=== PATIENT | male | born 1990 | race Caucasian/White ===

== ENCOUNTER 2016-06-10 20:31 | Emergency (ER) | payer OTHER ==
--- NOTE | 2016-06-10 20:55 | ER Document Report ---
ED Medical Screen (RME) - General Stated Complaint: TESTICULAR/ABDOMINAL PAIN Notes: yesterday onset right testicular pain that radiates into his groin, states that it is higher then the left. tender to touch denies urinary symptoms, penile discharge I have greeted and performed a rapid initial assessment of this patient. A comprehensive ED assessment and evaluation of the patient, analysis of test results and completion of the medical decision making process will be conducted by additional ED providers.
[2016-06-10 23:56] LABS: APPEARANCE,URINE CLEAR; BILIRUBIN,URINE NEGATIVE (NEGATIVE); GLUCOSE, URINE NEGATIVE (NEGATIVE); KETONES,URINE NEGATIVE (NEGATIVE); LEUKOCYTE ESTERASE,URINE NEGATIVE (NEGATIVE); NITRITE,URINE NEGATIVE (NEGATIVE); PROTEIN,URINE NEGATIVE (NEGATIVE); URINE SPECIFIC GRAVITY 1.016; UROBILINOGEN,URINE NEGATIVE mg/dL (<2.0)
--- NOTE | 2016-06-11 00:05 | ER Document Report ---
ED General - General Chief Complaint: Testicular Pain Stated Complaint: TESTICULAR/ABDOMINAL PAIN Notes: Patient is a 26-year-old male without past medical history who presents with several weeks of intermittent right testicular pain that became acutely worse tonight. Does describe some intermittent, sharp, stabbing pain in the right testicle. Nothing triggers these episodes of pain. They last for approximately 30 seconds and then do spontaneously resolve. Denies history of similar symptoms in the past. He has not seen his primary care doctor regarding today's concerns. Denies any discharge, dysuria, or hematuria. No flank or abdominal pain. He has not had any vomiting or fever. TRAVEL OUTSIDE OF THE [place] IN LAST 30 DAYS: No - Related Data Allergies/Adverse Reactions: Penicillins Allergy (Verified 06/10/16 20:52) Past Medical History - General Information source: Patient - Social History Smoking Status: Never Smoker Frequency of alcohol use: None Drug Abuse: None Lives with: Spouse/Significant other Family History: Reviewed & Not Pertinent Patient has suicidal ideation: No Patient has homicidal ideation: No Renal/ Medical History: Denies: Hx Peritoneal Dialysis Review of Systems - Review of Systems Notes: Constitutional: Negative for fever. HENT: Negative for sore throat. Eyes: Negative for visual changes. Cardiovascular: Negative for chest pain. Respiratory: Negative for shortness of breath. Gastrointestinal: Negative for abdominal pain, vomiting or diarrhea. Genitourinary: Negative for dysuria. Positive for right testicle pain Musculoskeletal: Negative for back pain. Skin: Negative for rash. Neurological: Negative for headaches, weakness or numbness. 10 point ROS negative except as marked above and in HPI. Physical Exam - Vital signs Vitals: Temp Pulse Resp BP Pulse Ox 97.7 F 80 16 128/77 H 98 06/10/16 20:52 06/10/16 20:52 06/10/16 20:52 06/10/16 20:52 06/10/16 20:52 Interpretation: Normal Notes: PHYSICAL EXAMINATION: GENERAL: Well-appearing, well-nourished and in no acute distress. HEAD: Atraumatic, normocephalic. EYES: Pupils equal round and reactive to light, extraocular movements intact, sclera anicteric, conjunctiva are normal. ENT: nares patent, oropharynx clear without exudates. Moist mucous membranes. NECK: Normal range of motion, supple without lymphadenopathy LUNGS: Breath sounds clear to auscultation bilaterally and equal. No wheezes rales or rhonchi. HEART: Regular rate and rhythm without murmurs ABDOMEN: Soft, nontender, normoactive bowel sounds. No guarding, no rebound. No masses appreciated. : Right testicle slightly raised. Pain on palpation of the epididymis and spermatic cord. Absent cremasteric reflex on the right. Present on the left. EXTREMITIES: Normal range of motion, no pitting or edema. No cyanosis. NEUROLOGICAL: No focal neurological deficits. Moves all extremities spontaneously and on command. PSYCH: Normal mood, normal affect. SKIN: Warm, Dry, normal turgor, no rashes or lesions noted. Course - Re-evaluation Re-evalutation: 06/11/16 00:03 Patient presents with intermittent right testicular pain. The right testicle is somewhat raised relative to the left. Cremasteric reflex not present on the right. Patient is not have any significant pain on the palpation of the testicle. A ultrasound does demonstrate a right-sided varicocele, no evidence of testicular torsion and his clinical history is not consistent with a diagnosis of torsion. Urinalysis is unremarkable. Will discharge with recommendations to follow-up with urology as well as return precautions. At this time will discharge with return precautions and follow-up recommendations. Verbal discharge instructions given a the bedside and opportunity for questions given. Medication warnings reviewed. Patient is in agreement with this plan and has verbalized understanding of return precautions and the need for primary care follow-up in the next 24-72 hours. - Vital Signs Vital signs: Temp Pulse Resp BP Pulse Ox 97.3 F 52 L 16 104/67 99 06/11/16 00:25 06/11/16 00:25 06/11/16 00:25 06/11/16 00:25 06/11/16 00:25 - Diagnostic Test Radiology reviewed: Reports reviewed Discharge - Discharge Clinical Impression: Right varicocele Condition: Good Disposition: HOME, SELF-CARE Additional Instructions: The pain in the right testicle is due to something called a varicocele which is a dilation of the veins that supply blood to the testicle. Your pain can be improved by raising the testicle or by wearing more supportive underwear. If this does not improve your pain, you will need to follow-up with urology as surgical management is sometimes required. Please return if you have worsening pain, persistent vomiting, fever greater than 101F, or any other symptoms that are worrisome to you. Referrals: CAROLE GRANADOS MD [ACTIVE STAFF] - Follow up as needed
[2016-06-11 00:50] LABS: CHLAM PCR NOT DETECTED (NOT DETECT)
[2016-06-11 01:34] VITALS: BP 104/67
== END 2016-06-11 00:25 | disposition home or self-care (01) ==
LOC: ER 20:31
DX: I86.1 Scrotal varices (principal); N50.811 Right testicular pain; Z88.0 Allergy status to penicillin
CPT/HCPCS: 76870; 81001; 87086; 87491; 87591; 93976; 99284

== ENCOUNTER 2016-08-05 05:15 | Day surgery (SDC) | payer OTHER ==
[~2016-08-05 05:15] MED LIST: LIDOCAINE 0.5% INJ-PF (5 MG/ML) 50 ML SDV INJ PRN; MORPHINE SULFATE 10 MG/ML INJ IV PRN; ONDANSETRON HCL INJ/PF 4 MG/2 ML SDV IV PRN; RINGERS SOLUTION,LACTATED 1,000 ML IV PRN
[2016-08-05] MEDS ORDERED: HYDROMORPHONE HCL INJ/PF 2 MG/ML AMPULE ONE (07:03)
[2016-08-05] MEDS ORDERED: MIDAZOLAM 2 MG/2 ML INJ ONE (07:04)
[2016-08-05] MEDS ORDERED: FENTANYL CITRATE INJ/PF 100 MCG/2 ML AMPUL ONE (07:04)
[2016-08-05] MEDS ORDERED: PROPOFOL INJ 200 MG/20 ML VIAL IV ONE ×2 (07:04)
[2016-08-05] MEDS ORDERED: CLINDAMYCIN PHOSPHATE INJ 300 MG/2 ML SDV ONE (07:51)
[2016-08-05] MEDS: BUPIVACAINE HCL 0.25 % INJ/PF (2.5 MG/1 ML) 30 ML VIAL ONE ×2 (08:05→08:47)
[2016-08-05] MEDS ORDERED: FENTANYL CITRATE INJ/PF 100 MCG/2 ML AMPUL IV PRN ×3 (08:23)
[2016-08-05] MEDS ORDERED: MEPERIDINE HCL/PF INJ 25 MG/1 ML DISP.SYRIN IV PRN (08:23)
[2016-08-05] MEDS ORDERED: PROMETHAZINE HCL INJ 25 MG/1 ML VIAL IV PRN (08:23)
[2016-08-05] MEDS ORDERED: DIPHENHYDRAMINE HCL 50 MG/ML VIAL IV PRN (08:23)
[2016-08-05] MEDS ORDERED: ACETAMINOPHEN 100 ML IV ONE (10:07)
[2016-08-05] MEDS ORDERED: OXYCODONE-ACETAMINOPHEN 5-325 MG TABLET PO PRN (10:21)
[2016-08-05] MEDS ORDERED: HYDROMORPHONE HCL INJ/PF 2 MG/ML AMPULE IV PRN (10:22)
[2016-08-05 12:43] VITALS: BP 114/65
[2016-08-05] MEDS ORDERED: ONDANSETRON HCL INJ/PF 4 MG/2 ML SDV ONE (13:13)
[2016-08-05] MEDS ORDERED: LIDOCAINE 2% INJ-PF (20 MG/ML) 10 ML AMPUL ONE (13:13)
[2016-08-05] MEDS ORDERED: DEXAMETHASONE SOD PHOSPHATE INJ 4 MG/1 ML VIAL ONE (13:13)
--- NOTE | 2016-08-05 17:23 | OPERATIVE REPORT E ---
Operative Report NAME: MUSA CIFUENTES : 1990 AGE: 26Y DATE OF SURGERY: 08/05/2016 ROOM: PREOPERATIVE DIAGNOSES: 1. Retracted right testicle. 2. Right varicocele. POSTOPERATIVE DIAGNOSES: 1. Retracted right testicle. 2. Right varicocele. OPERATION PERFORMED: 1. Right microscopic varicocelectomy. 2. Right orchiopexy. SURGEON: SHADI GREENBERG D.O. COST ESTIMATOR: Keegan Rodríguez MD INDICATION FOR PROCEDURE: The patient is a 26-year-old male with history of right-sided testicular pain with a retractable testicle and a subclinical right varicocele. He was counseled on the risks, benefits, and side effects of a right-sided microscopic varicocelectomy and a right-sided orchiopexy and consented to proceed. ANESTHESIA: General. INTRAVENOUS FLUIDS: 800 mL lactated Ringer's. ESTIMATED BLOOD LOSS: 5 mL. URINE OUTPUT: Zero. IMPLANTS: None. DRAINS: None. COMPLICATIONS None. FINDINGS: Scarring of the right spermatic cord in the inguinal canal with a retractable right testicle sitting near the external ring and a right varicocele. DESCRIPTION OF PROCEDURE: The patient was met in the preop holding. Risks, benefits, side effects of a right-sided varicocelectomy and right-sided orchiopexy were again reviewed with the patient. He consented to proceed. He was brought to the operative theatre and placed on the table in supine position where general anesthesia was induced. He was then sterilely prepped and draped in the usual fashion. A time out was performed to ensure proper patient, proper procedure, proper laterality. Preoperative antibiotics were administered. With all in agreement, we proceeded. We began by making a 4 cm incision just superior and lateral to the external inguinal ring in the right groin. This was deepened down to the external oblique fascia which was opened in the direction of it fibers with Metzenbaum scissors. The cord appeared to be scarred to the inguinal canal due to his prior orchiopexy as a child. With a combination of blunt dissection and electrocautery, we were able to free the cord from its surrounding attachments to the level of the pubic tubercle. When this was completed, we were able to have greater length on the testicle and bring it to the ependymal portion of the scrotum. We then brought the microscope on the field and slowly dissected the cremasteric fibers from the remaining surrounding cord. These were then ligated with 4-0 silk tie and divided with electrocautery. There did not appear to be an internal or external spermatic fascia due to the prior surgeries. We did identify 2 dilated veins which we sequentially tied with 4-0 silk ties after identifying the artery with ultrasound. We then performed a cord block and returned the cord to the canal. We closed the external oblique fascia with a running 2-0 Vicryl suture and then injected the fascia with Marcaine. We then closed the Demetria's fascia with interrupted 3-0 Vicryl sutures and closed the skin with a running 4-0 Monocryl suture in the subcuticular fashion. We then turned our attention to the orchiopexy. A 3 cm incision was made in the scrotum transversely overlying the testicles. This was deepened down to the testicle. It was delivered through the incision which showed scarring of the tunica vaginalis and tunica albuginea which was not extensive and easily debrided. We then performed our orchiopexy using 3-0 Ethibond sutures. The suture was placed through the tunica albuginea of the testicle and then again through the subcuticular tissue of the scrotum ensuring the buttonhole of the scrotum. This was done as left to right and inferior position of the testicle and the testicle was then returned to the scrotum. Once this was completed, hemostasis was obtained and the dartos fascia was closed with a running 3-0 Vicryl suture and the skin was closed with 4-0 Monocryl in a running horizontal mattress fashion. Both skin incisions were sealed with Dermabond. Fluff gauze and scrotal support were placed. The patient was awakened and taken to the PACU in good condition. At the conclusion of the case, all instrument, needle, and sponge counts were complete and correct. DICTATING PHYSICIAN: SHADI GREENBERG D.O. [id number] PHY#: [id number] ID: [id number] JOB#: [id number] ACCT: [id number] cc:SHADI GREENBERG D.O. >
== END 2016-08-05 12:30 | disposition home or self-care (01) ==
LOC: OROUT 05:15
PROVIDERS: ATTEND Surgery
PROC: 0VBF0ZZ Excision of Right Spermatic Cord, Open Approach (ICD-10-PCS; 2016-08-05)
PROC: 0VS90ZZ Reposition Right Testis, Open Approach (ICD-10-PCS; principal; 2016-08-05 07:30)
DX: I86.1 Scrotal varices (principal); Q55.22 Retractile testis; Z79.899 Other long term (current) drug therapy; Z79.1 Long term (current) use of non-steroidal anti-inflammatories (NSAID); Z88.0 Allergy status to penicillin
CPT/HCPCS: 54640; 55530; J2250; J1100; J1170; J2405; J2704; J3490; J0131; 860; J3010